=== PATIENT | male | born 1945 ===

== ENCOUNTER 2018-10-07 08:30 | Inpatient (IN) | payer OTHER ==
[~2018-10-07] VITALS: Ht 152.4 cm; Wt 81.6 kg
[~2018-10-07 08:30] MED LIST: ALLOPURINOL300 MG PO; CAPTOPRIL50 MG PO; CEFADROXIL500 MG PO; GEMFIBROZIL600 MG PO; GLIPIZIDE10 MG PO; INDAPAMIDE2.5 MG PO; LATANOPROST2.5 ML; LATANOPROST2.5 ML PO; METFORMIN HCL500 MG PO; MULTI VITAMIN1 EACH PO; NIFEDICAL60 MG/BOTT PO; PENTOXIFYLLINE400 MG PO; PERCOCET 5/321 UDTAB PO; PRILOSEC20 MG PO; TIMOLOL MALEATE5 M1 OP; XARELTO10 MG PO
[2018-10-07] MEDS ORDERED: GLUCOTROL10 MG PO (09:28)
[2018-10-07] MEDS ORDERED: ASPIR 8181 MG PO (09:28)
[2018-10-07] MEDS ORDERED: NIFE60TA3 PO (09:29)
[2018-10-07] MEDS ORDERED: TRETAL PO (09:29)
[2018-10-15] MEDS ORDERED: PENTOXIFYLLINE400 MG PO (08:15)
[2018-10-17] MEDS ORDERED: DUI500 PO (08:18)
[2018-10-17] MEDS ORDERED: PERCOCET 5-3251 EACH PO (08:18)
[2018-10-17] MEDS ORDERED: ELIQUIS2.5 MG PO (08:18)
== END 2018-10-17 14:33 | DRG 470 ==
LOC: O/R 10-14 05:09 → SURG 10-14 05:09 → SURH 10-14 07:00 → SURG 10-14 13:28
PROVIDERS: ADMIT Orthopaedic Surgery
PROC: 0QNF0ZZ Release Left Patella, Open Approach (ICD-10-PCS; 2018-10-14)
PROC: 0SRD0J9 Replacement of Left Knee Joint with Synthetic Substitute, Cemented, Open Approach (ICD-10-PCS; principal; 2018-10-14 07:00)
DX: M17.12 Unilateral primary osteoarthritis, left knee (principal); D62 Acute posthemorrhagic anemia; M22.12 Recurrent subluxation of patella, left knee